=== PATIENT | male | born 1935 | race Caucasian/White ===

== ENCOUNTER 2022-04-21 10:43 | Inpatient (IN) | payer MEDICARE ==
[~2022-04-21] VITALS: Ht 172.7 cm; Wt 72.6 kg
[2022-04-21 11:53] LABS: HEMOGLOBIN 14.9 gm/dl (14.0-17.5); RED BLOOD COUNT 4.85 M/UL (4.20-5.50); WHITE BLOOD COUNT 9.7 K/UL (4.5-11.0)
[2022-04-21] MEDS ORDERED: MYRBETRIQ25 MG PO (15:28)
[2022-04-21] MEDS ORDERED: FLOMAX 0.4 MG0.4 MG PO (15:28)
[2022-04-21] MEDS ORDERED: VITAMIN D325 MCG PO (15:28)
[2022-04-21] MEDS ORDERED: MULTIVITAMIN1 EACH PO (15:28)
--- NOTE | 2022-04-21 20:30 | NUR ---
GREGORIOEMILE JENKINS SON CALLED DID NOT HAVE HIPPA CODE WORD SO I INFORMED HIM I WAS NOT ABLE TO RELEASE ANY INFORMATION EXCEPT THAT HE IS STABLE AT THIS TIME.
[2022-04-22 02:29] LABS: RED BLOOD COUNT 4.58 M/UL (4.20-5.50); WHITE BLOOD COUNT 10.1 K/UL (4.5-11.0)
[2022-04-22 02:57] LABS: BUN/CREATININE RATIO 14 (0-10)
[2022-04-23 06:15] LABS: HEMOGLOBIN 13.1 gm/dl (14.0-17.5); RED BLOOD COUNT 4.35 M/UL (4.20-5.50); WHITE BLOOD COUNT 8.1 K/UL (4.5-11.0)
== END 2022-04-23 12:30 | disposition home or self-care (01) | DRG 389 ==
LOC: ER1 10:43 → CDU 15:09 → M/S 15:09
PROVIDERS: Emergency Medicine; Physician Assistant; ADMIT Internal Medicine
DX: K56.600 Partial intestinal obstruction, unspecified as to cause (principal); N17.9 Acute kidney failure, unspecified; I12.9 Hypertensive chronic kidney disease with stage 1 through stage 4 chronic kidney disease, or unspecified chronic kidney disease; N18.30 Chronic kidney disease, stage 3 unspecified; K44.9 Diaphragmatic hernia without obstruction or gangrene; Z20.822 Contact with and (suspected) exposure to COVID-19; H91.93 Unspecified hearing loss, bilateral; K57.90 Diverticulosis of intestine, part unspecified, without perforation or abscess without bleeding; N40.0 Benign prostatic hyperplasia without lower urinary tract symptoms; Z85.828 Personal history of other malignant neoplasm of skin; Z88.2 Allergy status to sulfonamides; Z90.49 Acquired absence of other specified parts of digestive tract; Z90.79 Acquired absence of other genital organ(s); Z83.3 Family history of diabetes mellitus; Z80.9 Family history of malignant neoplasm, unspecified
CPT/HCPCS: 36415; 80048; 80053; 81001; 83605; 83690; 85025; 93005; 96361; 96374; 99285; C9113; J1170; J2270; J2405; J2543; Q9967